=== PATIENT | male | born 1960 | race Caucasian/White ===

== ENCOUNTER → 2021-08-19 | Day surgery (SDC) | payer OTHER ==
[2021-07-27 15:45] VITALS: BMI 21.9
[2021-08-19 10:55] VITALS: BP 114/63; PULSE 100; TEMP 98.1
== END | disposition home or self-care (01) ==
LOC: FASU-ENDO 10:17
PROVIDERS: ATTEND Internal Medicine Gastroenterology
PROC: 0DJ08ZZ Inspection of Upper Intestinal Tract, Via Natural or Artificial Opening Endoscopic (ICD-10-PCS; principal; 2021-08-19)
DX: Z53.8 Procedure and treatment not carried out for other reasons (principal); R10.13 Epigastric pain

== ENCOUNTER 2022-08-11 09:19 | Day surgery (SDC) | payer OTHER ==
[2022-08-11 10:30] VITALS: BMI 22.5
[2022-08-11 11:52] VITALS: PULSE 73; RESP 20; TEMP 97.6
[2022-08-11 12:09] VITALS: BP 119/65
== END 2022-08-11 12:50 | disposition home or self-care (01) ==
LOC: FASU-ENDO 09:19
PROVIDERS: ATTEND Internal Medicine Gastroenterology
PROC: 0DB68ZX Excision of Stomach, Via Natural or Artificial Opening Endoscopic, Diagnostic (ICD-10-PCS; 2022-08-11)
PROC: 0DB48ZX Excision of Esophagogastric Junction, Via Natural or Artificial Opening Endoscopic, Diagnostic (ICD-10-PCS; 2022-08-11)
PROC: 0DB98ZX Excision of Duodenum, Via Natural or Artificial Opening Endoscopic, Diagnostic (ICD-10-PCS; principal; 2022-08-11 11:04)
DX: K29.50 Unspecified chronic gastritis without bleeding (principal); K20.90 Esophagitis, unspecified without bleeding; R10.13 Epigastric pain; R12 Heartburn
CPT/HCPCS: 88305-TC; 88342-TC